=== PATIENT | female | born 1950 | race Caucasian/White ===

== ENCOUNTER → 2017-01-06 | Outpatient (CLI) | payer MEDICARE, BC, OTHER ==
[~2017-01-06] MED LIST: ASPI-535 PO; GLUC1CAP40 PO; OLME40TA14 PO; SIMV40TA3 PO
--- NOTE | 2017-01-06 14:22 | PN ---
Date/Time of Note Date/Time of Note DATE: 01/06/17 TIME: 14:16 Outpatient Progress Note Chief Complaint New complaint right knee HPI 66-year-old female presents today for new complaint of right knee pain that is been going on for the past couple of months. Patient states that she has a limping gait after being on the knee throughout the day. Pain is constant at a 7/10 on the pain scale.Denies any injury as pain is insidious in onset. 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 Takes anti-inflammatories as needed for pain complaints. Her history is significant for bilateral total hip arthroplasty with the right hip performed in 2007 and the left hip performed in 1999. Patient is very pleased in regards to bilateral hip replacements in the past but is due for revision surgery/ replacement liner. Patient is currently undergoing scheduling for revision/ replacement liner of the left hip.Other than that, denies any complications to previous surgeries.Patient's primary complaint is the right knee at this time. Denies any change in her function but notes that it is becoming increasingly difficult to perform daily activity secondary to constant right knee pain. Review of Systems Const: No Fever, no chills, no Fatigue, normal appetite, no diaphoresis. Resp: No SOB, no wheezing, no chest pain. CV: No chest pain, no palpitaions, no CLARK. Physical Exam Blood pressure is 138/73, temperature is 98.4, pulse is 91, respiratory rate is 14, height is 5 foot 3 inches, weight is 200 pounds General Appearance: well-developed, well-nourished, in no acute distress. Right knee: Obese in stature. Gait is antalgic with slight limp. While lying down patient has full range of motion in regards to flexion and extension of the right knee. Positive crepitus palpated to the medial and patellofemoral compartment. Tenderness to palpation to the medial compartment. Normal strength with resistance on flexion and extension. Normal sensory examination to light touch. Negative Jozef's test. Imaging X-ray to the right knee performed on 01/06/2017 showing severe osteoarthritic changes to the medial and patellofemoral compartment. [id number]-av-[id number] deformity to the medial compartment. There is about mild to moderate joint space narrowing to the lateral compartment. No signs of any acute injury/fracture. Allergies Coded Allergies: No Known Allergy (Unverified , 06/27/11) Assessment/Plan Problems: (1) Osteoarthritis of right knee * Patient is provided verbal and written consent to proceed with cortisone injection to the right knee. Area was cleaned with Betadine swab. 2 cc of Kenalog 40 mg per male with 6 cc of Marcaine 0.25% were injected to the knee using a 25-gauge needle.Band-Aid applied after injection. Patient was observed for 3-5 minutes after injection before discharge. * Continue anti-inflammatories as needed for pain complaints. Continue daily activity in regards to range of motion. Avoid strenuous activities such as jogging as this may create repetitive trauma to the knee. Avoid weightbearing for extended periods of time as this may exacerbate pain. * Discussion into possible total knee arthroplasty had today as patient is an eligible candidate but patient states that she will be taking a trip to [place] for 1 month and does not wish to discuss surgery at this time. She would also like to have replacement liner to the left hip placed prior to knee replacement. We will respect patient's wishes at this time. * Patient will follow-up when she returns from vacation. Medications Home Meds Reported Medications Glucosa Jay 2KCL/Chondroitin Jay (Glucosamine & Chondroitin Cap) 1 Cap Capsule, 2 CAP PO DAILY 06/27/11 Aspirin Ec (Aspir 81) 81 Mg Tablet.dr, 81 MG PO DAILY 06/27/11 Simvastatin (Simvastatin) 40 Mg Tablet, 40 MG PO DAILY 06/27/11 Olmesartan Medoxomil (Benicar) 40 Mg Tablet, 40 MG PO DAILY 06/27/11 JOSEFINA VARNER PA-C Jan 06, 2017 14:22
--- NOTE | 2017-01-06 17:53 | RADRPT ---
PROCEDURE: Right knee radiographs. CLINICAL INDICATION: Right knee pain. TECHNIQUE: Three views. Weight bearing. Frontal, lateral, and patellar view. COMPARISON: No prior studies are available for comparison. FINDINGS: There is no fracture or dislocation. The soft tissues are normal. There are degenerative changes with osteophytes arising from all 3 joint compartment margins. There is medial joint compartment narrowing and deformity. There is also patellofemoral joint compartment narrowing and deformity. There is no lytic or blastic lesion. There is no radiopaque foreign body. IMPRESSION: 1. Severe degenerative changes of the right knee. 2. No acute abnormality. RPTAT: QQ .Akbar Culp MD, MD Date Time Electronically viewed and signed by .Akbar Culp MD, MD on 01/06/2017 17:53 .R/
== END | disposition home or self-care (01) ==
LOC: HKI 13:22
DX: M17.11 Unilateral primary osteoarthritis, right knee (principal); Z79.82 Long term (current) use of aspirin

== ENCOUNTER → 2017-02-18 | Outpatient (CLI) | payer MEDICARE, BC ==
--- NOTE | 2017-02-18 17:22 | RADRPT ---
PROCEDURE: XR Left hip and pelvis. CLINICAL INDICATION: Left hip pain and pelvic pain. TECHNIQUE: 3 views. Frontal pelvis. Frontal and lateral left hip. COMPARISON: 06/18/2015. FINDINGS: There are bilateral total hip arthroplasties which appears satisfactory. There is no fracture, dislocation, or loosening. There is no lytic or blastic lesion. The upper pelvis is not included on the images. The soft tissues are grossly normal. IMPRESSION: 1. Satisfactory postoperative appearance of both hips. RPTAT: QQ .Akbar Culp MD, MD Date Time Electronically viewed and signed by .Akbar Culp MD, on 02/18/2017 17:21 .R/
--- NOTE | 2017-02-19 07:01 | HKNOTE ---
DATE OF SERVICE: 02/18/2017 CHIEF COMPLAINT: Left hip and right knee pain. HISTORY OF PRESENT ILLNESS: Sera is a 66-year-old female who is here for followup of her left hip a nd right knee pain. 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 She had a right hip replacement in 2007 and a left total hip replacement in 1999. The patient continues to have left groin pain and latera l hip pain that increases with weightbearing activities. She also complains of significant right kn ee pain with activity and has been diagnosed with osteoarthritis in the past. Today, she is mainly here to schedule surgery on her left hip. PAST MEDICAL HISTORY: Significant for hypertension, increased cholesterol, and arthritis. MEDICATIONS: 1. Benicar. 2. Simvastatin. 3. Aspirin. 4. Glucosamine. ALLERGIES: NONE. REVIEW OF SYSTEMS: Positive for joint pains and stiffness. Negative for chest pain, shortness of b reath, nausea, vomiting, diarrhea. PHYSICAL EXAMINATION: GENERAL: Shows a pleasant female. She is somewhat anxious, awake, alert, and oriented. She is wal adelso with a slight limp on her left side. VITAL SIGNS: Stable. Height is 5 foot 3 inches, weight 195, pulse rate is 88, respirations 16. EXTREMITIES: Examination of the right hip shows a healed incision with good range of motion. [place] of the left hip shows a healed incision with lateral tenderness over the greater trochanter. Range of motion shows flexion of 100 degrees, external rotation of 40 degrees, and internal rotatio n of 0 degrees. The left lower extremity is 5 mm shorter than the right. There is no neurovascular deficit. Examination of the right knee shows a mild varus deformity with medial joint line tendern ess and mild swelling. Range of motion of the right knee shows crepitus on range of motion and limi tation from 5 to 120 degrees. There is no neurovascular deficit. IMAGING: X-rays of the right knee from 01/06/2017 show severe osteoarthritis with complete loss of medial joint space. 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 She would like to proceed with hip revision on her left side. She will most likely need a head and liner exchange and a possible revision of the cup. This was discussed in detail with the patient. She will be sc heduled for surgery in the near future. For her right knee osteoarthritis, we will start a series o f Orthovisc injections today. She is interested in a right total knee replacement at some point in the future. I have advised her to wait several months after her left hip surgery is completed. Dictated By: LUZMARIA MULLER/CHRISTOPHER Conf#: [id number] DID#: [id number]
--- NOTE | 2017-02-25 14:30 | PN ---
Date/Time of Note Date/Time of Note DATE: 02/25/17 TIME: 14:27 Outpatient Progress Note Chief Complaint Orthovisc right knee injection #2 HPI 66-year-old female presents today for second Orthovisc injection to the right knee. Since experiencing her first injection last week, she denies any significant relief. No acute injuries. No changes since she was last seen. Review of Systems Const: No Fever, no chills, no Fatigue, normal appetite, no diaphoresis. Resp: No SOB, no wheezing, no chest pain. CV: No chest pain, no palpitaions, no CLARK. Physical Exam General Appearance: well-developed, well-nourished, in no acute distress. Right knee: No significant changes from examination last week. Allergies Coded Allergies: No Known Allergy (Unverified , 06/27/11) Assessment/Plan Problems: (1) Osteoarthritis of right knee * Second Orthovisc injection performed today to the right knee. Area was cleaned with Betadine swabs and alcohol. Using 22-1/2-gauge needle, second Orthovisc injection was performed after local anesthesia was achieved with 1% lidocaine. Patient tolerated procedure well. Follow-up 1 week for last injection of the series. Medications Home Meds Reported Medications Glucosa Jay 2KCL/Chondroitin Jay (Glucosamine & Chondroitin Cap) 1 Cap Capsule, 2 CAP PO DAILY 06/27/11 Aspirin Ec (Aspir 81) 81 Mg Tablet.dr, 81 MG PO DAILY 06/27/11 Simvastatin (Simvastatin) 40 Mg Tablet, 40 MG PO DAILY 06/27/11 Olmesartan Medoxomil (Benicar) 40 Mg Tablet, 40 MG PO DAILY 06/27/11 JOSEFINA VARNER PA-C Feb 25, 2017 14:30
== END | disposition home or self-care (01) ==
LOC: HKI 14:25
PROVIDERS: ATTEND Orthopaedic Surgery
DX: M17.11 Unilateral primary osteoarthritis, right knee (principal); Z79.82 Long term (current) use of aspirin
CPT/HCPCS: 20610; 73502; G0463; J7324

== ENCOUNTER → 2017-02-25 | Outpatient (CLI) | payer MEDICARE, BC | END | disposition home or self-care (01) | LOC: HKI 13:57 | PROVIDERS: ATTEND Orthopaedic Surgery | DX: M17.11 Unilateral primary osteoarthritis, right knee (principal) ==

== ENCOUNTER → 2017-03-04 | Outpatient (CLI) | payer MEDICARE, BC ==
--- NOTE | 2017-03-04 10:38 | PN ---
Date/Time of Note Date/Time of Note DATE: 03/04/17 TIME: 10:35 Outpatient Progress Note Chief Complaint Right knee Orthovisc injection 06/25 HPI 66-year-old female presents today for third Orthovisc injection. Patient is beginning to experience some relief to the right knee after her second Orthovisc injection. No acute changes since she was last seen. No recent injury. Review of Systems Const: No Fever, no chills, no Fatigue, normal appetite, no diaphoresis. Resp: No SOB, no wheezing, no chest pain. CV: No chest pain, no palpitaions, no CLARK. Physical Exam Blood pressure is 127/81, temperature is 98, pulse is 77, respiratory rate is 12, height is 5 foot 3 inches, weight is 195 pounds General Appearance: well-developed, well-nourished, in no acute distress. Right knee: No changes in physical examination since patient was last seen. Patient is able to flex up to 120 and fully extend. No pain complaints with range of motion today. No tenderness to palpation. Mild ecchymosis at injection site from last week. Allergies Coded Allergies: No Known Allergy (Unverified , 06/27/11) Assessment/Plan Problems: (1) Osteoarthritis of right knee * Third Orthovisc injection performed today. Area was cleaned with Betadine swab followed by isopropyl alcohol swab. Using 25-gauge needle local anesthesia was performed with 1% lidocaine about 4 cc. After local anesthesia was achieved, Orthovisc injection was performed with no complications. Patient was observed for 5-10 minutes after procedure and then discharged. * Follow-up as needed in regards to the right knee. Patient has upcoming liner exchange surgery for her hip. We will continue with preoperative process. Medications Home Meds Reported Medications Glucosa Jay 2KCL/Chondroitin Jay (Glucosamine & Chondroitin Cap) 1 Cap Capsule, 2 CAP PO DAILY 06/27/11 Aspirin Ec (Aspir 81) 81 Mg Tablet.dr, 81 MG PO DAILY 06/27/11 Simvastatin (Simvastatin) 40 Mg Tablet, 40 MG PO DAILY 06/27/11 Olmesartan Medoxomil (Benicar) 40 Mg Tablet, 40 MG PO DAILY 06/27/11 JOSEFINA VARNER PA-C Mar 04, 2017 10:38
== END | disposition home or self-care (01) ==
LOC: HKI 10:13
PROVIDERS: ATTEND Orthopaedic Surgery
DX: M17.11 Unilateral primary osteoarthritis, right knee (principal); Z79.82 Long term (current) use of aspirin
CPT/HCPCS: 20610; J7324

== ENCOUNTER → 2017-04-08 | Outpatient (CLI) | END | disposition home or self-care (01) ==

== ENCOUNTER 2017-04-12 09:33 | Inpatient (IN) | payer MEDICARE, BC ==
[~2017-04-12] VITALS: Ht 160 cm; Wt 91.9 kg
[2017-04-12] VITALS (30 sets, daily range): BP systolic 105–130; BP diastolic 51–69; PULSE 62–86; RESP 12–23; Ht 160 cm; Wt 91.9 kg
[2017-04-12] MEDS: LACTATED RINGER'S 1,000 ML IV SCH ×3 (06:00→22:00)
[~2017-04-12 09:33] MED LIST changes: +ACETAMINOPHEN 1000MG/100ML IV 100 ML IVPB ONE; +CEFAZOLIN 2 GM/50 ML (PMX) 50 ML (FOR WT < 120 KG) IVPB ONE; +CELECOXIB 200 MG CAP PO ONE; +DEXAMETHASONE 4 MG/ML 1 ML INJ IV ONE; +ETOMIDATE 20 MG INJ ONE; +LANSOPRAZOLE 30 MG CAP PO ONE; +ONDANSETRON 4 MG INJ IV ONE; +PROPOFOL 1000 MG INJ ONE; +TRANEXAMIC ACID 1,000 MG in D5W 100 ML AT CLOSURE X1 IVPB ONE; +TRANEXAMIC ACID 1,000 MG in D5W 100 ML AT INCISION X1 IVPB ONE
[2017-04-12] MEDS ORDERED: SODIUM CL BACTERIOSTATIC 30 ML INJ ONE (10:11)
[2017-04-12] MEDS ORDERED: DEXAMETHASONE 4 MG/ML 1 ML INJ ONE (10:17)
[2017-04-12] MEDS ORDERED: CEFAZOLIN 1 GM INJ ONE (10:17)
[2017-04-12] MEDS ORDERED: MIDAZOLAM 1 MG/ML 2 ML INJ ONE (10:17)
[2017-04-12] MEDS ORDERED: GLYCOPYRROLATE 0.4 MG INJ ONE (10:17)
[2017-04-12] MEDS ORDERED: FENTAnyl 50 MCG/ML VIAL ONE (10:17)
[2017-04-12] MEDS ORDERED: NEOSTIGMINE 3 MG/3 ML SYRINGE ONE (10:17)
[2017-04-12] MEDS ORDERED: ONDANSETRON 4 MG INJ ONE (10:17)
[2017-04-12] MEDS ORDERED: ROCURONIUM 50 MG INJ ONE (10:17)
[2017-04-12] MEDS ORDERED: PROPOFOL 20 ML ONE (10:17)
--- NOTE | 2017-04-12 10:36 | HPN ---
Date/Time of Note Date/Time of Note DATE: 04/12/17 TIME: 10:36 Interval H&P Admission Note Pt. seen H&P reviewed: No system changes LUZMARIA BLANCO Apr 12, 2017 10:36
[2017-04-12] MEDS ORDERED: EPHEDrine SULFATE 50 MG/5 ML SYG IV PRN (11:30)
[2017-04-12] MEDS ORDERED: DIPHENHYDRAMINE 50 MG INJ IV PRN (11:30)
[2017-04-12] MEDS ORDERED: HYDROmorphONE (0.2 MG/ML) 10ML SYG IV PRN ×6 (11:30→15:00)
[2017-04-12] MEDS ORDERED: MEPERIDINE 25 MG INJ IV PRN (11:30)
[2017-04-12] MEDS ORDERED: TRIMETHOBENZAMIDE 100 MG/ML VIAL IM PRN (11:30)
[2017-04-12] MEDS ORDERED: LABETALOL HCL 20MG INJ IV PRN (11:30)
[2017-04-12] MEDS ORDERED: ALBUTEROL 0.083% (NEB) 2.5 MG/3 ML AMP HHN PRN (11:30)
[2017-04-12] MEDS ORDERED: FENTAnyl 50 MCG/ML VIAL IV PRN ×6 (11:30→15:00)
[2017-04-12] MEDS ORDERED: IPRATROPIUM (NEB) 0.5 MG/2.5 ML AMP HHN PRN (11:30)
[2017-04-12] MEDS ORDERED: ONDANSETRON 4 MG INJ IV PRN ×2 (11:30→15:00)
[2017-04-12] MEDS ORDERED: MIDAZOLAM 1 MG/ML 2 ML INJ IV PRN (11:30)
[2017-04-12] MEDS ORDERED: hydrALAzine 20 MG INJ IV PRN (11:30)
[2017-04-12] MEDS ORDERED: OXYCODONE/ACETAMINOPHEN (5/325) TAB PO PRN ×3 (11:30→15:00)
[2017-04-12] MEDS ORDERED: BACITRACIN 50000 UNITS INJ IRR ONE (11:37)
[2017-04-12] MEDS ORDERED: POLYMYXIN B 500000 UNIT INJ IRR ONE (11:37)
[2017-04-12] MEDS ORDERED: SUGAMMADEX SODIUM 200 MG/2 ML VIAL IV ONE (12:13)
--- NOTE | 2017-04-12 12:23 | SIPON ---
Date/Time of Note Date/Time of Note DATE: 04/12/17 TIME: 12:21 Operative Report Preoperative Diagnosis Failed left total hip replacement Postoperative Diagnosis Same Operation/Procedure Performed Revision of left total hip replacement Surgeon see signature line kindergarten instructional assistant Michael Brush Second assist: JOSEFINA VARNER PA-C Anesthesia: spinal Estimated blood loss: 150 - 200 ml's Transfusion Required none Specimen Cultures Grafts/Implants 48 mm +4 polyethylene, 28 mm revision ceramic head Complications none LUZMARIA BLANCO Apr 12, 2017 12:23
--- NOTE | 2017-04-12 12:27 | OPR ---
Date/Time of Note Date/Time of Note DATE: 04/12/17 TIME: 12:23 Operative Report Procedure Date: Apr 12, 2017 Preoperative Diagnosis Failed left total hip replacement Postoperative Diagnosis Same Operation/Procedure Performed ReVision of left total hip replacement Surgeon see signature line Casting Finisher Dr. Michael Brush Second Casting Finisher: JOSEFINA VARNER PA-C Anesthesia Type: spinal Estimated Blood Loss: 150 - 200 ml's Transfusion none Specimen Cultures Grafts/Implants 48 mm +4 [place] liner, 28 mm revision ceramic head Tubes/Drains None Complications none Pt Condition Post Procedure: stable Disposition: PACU Indications The patient had a left total hip replacement about 17 years ago. She has now developed pain and difficulty with walking. X-rays show wear and osteolysis of the left hip Procedure Description The patient was placed supine on the operating room table. The left hip was prepped and draped in usual manner. Preoperative antibiotics were administered. The left hip was approached anteriorly. The plane between the sartorius and tensor fascia marianne was developed in a blunt fashion. The hip capsule was opened. Effusion was encountered. Cultures were obtained. The capsular release was done around the proximal femur and acetabulum to expose the acetabular component. Significant wear and also lysis was encountered. The femoral head and acetabular liner were removed. The hip was thoroughly irrigated. The locking ring on the acetabulum was removed as well. Trial components were then placed including a 48 mm +4 liner and a 28 mm +8.5 femoral head. This resulted in a stable hip with equal leg length. X-rays were obtained to confirm alignment. Once satisfactory alignment was confirmed, final components were placed including a 48 mm +4 [place] liner and a 28 mm revision ceramic head with a +8.5 mm length. This resulted in a stable hip and equal leg length. Left hip was then thoroughly irrigated and injected with Marcaine and Toradol. The wound was closed in layers using #1 Vicryl for arthrotomy and fascia 2-0 Vicryl for subcutaneous tissue and 3-0 Monocryl for the skin. Patient was transferred to the recovery room in stable condition LUZMARIA BLANCO Apr 12, 2017 12:27
--- NOTE | 2017-04-12 12:39 | PDOCDIS ---
Discharge Instructions DIAGNOSIS Discharge Diagnosis Left total hip revision with head and liner exchange. CONDITION Patient Condition: Good HOME CARE INSTRUCTIONS: Diet Instructions: Regular ACTIVITY: Activity Restrictions: Slowly Increase Activity Rest between Activity Avoid heavy lifting No Sexual Activity Do not Drive Do not operate Machinery Do not operate Power Tool Avoid Heavy Housework Keep Limb Elevated (May apply cold therapy over surgical dressing. No ice directly to skin.) Weight Bearing (Weight-bear as tolerated with front wheeled walker) Bathing Restrictions: Shower (Mepilex dressing to remain on until postoperative appointment.) FOLLOW UP/APPOINTMENTS Follow-up Plan Follow-up at postoperative appointment provided to you at your preoperative visit. JOSEFINA VARNER PA-C Apr 12, 2017 12:39
[2017-04-12] MEDS ORDERED: MAGNESIUM HYDROXIDE 30ML CUP PO PRN (13:00)
[2017-04-12] MEDS ORDERED: NA PHOSPHATE/BIPHOS 133 ML ENEMA PR PRN (13:00)
[2017-04-12] MEDS ORDERED: DIPHENHYDRAMINE 50 MG INJ IM PRN (13:00)
[2017-04-12] MEDS ORDERED: DOCUSATE SODIUM 100 MG CAP PO ONE (13:00)
[2017-04-12] MEDS ORDERED: KETOROLAC 15 MG INJ IV PRN (13:00)
[2017-04-12] MEDS ORDERED: SENNA/DOCUSATE NA (8.6MG/50MG) TAB PO PRN (13:00)
[2017-04-12] MEDS ORDERED: BISACODYL 10 MG SUPP PR PRN (13:00)
[2017-04-12] MEDS ORDERED: NALOXONE (0.4 MG/ML) INJ IV PRN (13:00)
[2017-04-12] MEDS ORDERED: oxyCODONE 5 MG TAB PO PRN ×3 (13:00)
[2017-04-12] MEDS ORDERED: ASPIRIN (EC) 325 MG TAB PO ONE (13:00)
[2017-04-12] MEDS ORDERED: BETHANECHOL 25 MG TAB PO PRN (13:00)
[2017-04-12] MEDS ORDERED: NACL 0.9% 3 ML SYG IV SCH (13:00)
[2017-04-12] MEDS ORDERED: ZOLPIDEM 5 MG TAB PO PRN (13:00)
[2017-04-12] MEDS: CEFAZOLIN 1 GM/50 ML (PMX) 50 ML IVPB SCH ×2 (13:54→22:19)
[2017-04-12] MEDS: ONDANSETRON 4 MG INJ IV SCH ×2 (13:55→19:00)
[2017-04-12] MEDS ORDERED: BACITRACIN 50000 UNITS INJ ONE (14:06)
[2017-04-12] MEDS ORDERED: POLYMYXIN B 500000 UNIT INJ ONE (14:10)
--- NOTE | 2017-04-12 14:18 | RADRPT ---
PROCEDURE: Pelvis x-ray CLINICAL INDICATION: Left hip replacement, pain TECHNIQUE: Single AP view of the pelvis performed. COMPARISON: 02/18/2017 FINDINGS: Normal mineralization, architecture and alignment. Bilateral hip arthroplasties are again seen. These are not significantly changed compared to the pre vious study. Unremarkable soft tissues. IMPRESSION: Stable bilateral total hip arthroplasty. RPTAT:AAJJ Physician Ria Date Time Electronically viewed and signed by Wayne Mccain Physician on 04/12/2017 14:17 /
--- NOTE | 2017-04-12 14:50 | CONS ---
DATE OF ADMISSION: 04/12/2017 DATE OF CONSULTATION: 04/12/2017 TYPE OF CONSULTATION: Postoperative medical. Thank you very much, Dr. Bradley, for allowing me to evaluate this 66-year-old female who just underw ent left hip revision. HISTORICAL EVENTS: As you well know, this patient did undergo prior bilateral total hip replacement . Because of continued pain, she elected to proceed with revisional surgery of her left hip. In re covery, she is comfortable without cough, wheezing, shortness of breath, nausea, vomiting, abdominal or chest pain. PAST MEDICAL HISTORY: Includes 1. Hypertension. 2. Hyperlipidemia. 3. Asymptomatic cholelithiasis. 4. Diverticulosis. 5. Bilateral total hip replacements. FAMILY HISTORY: Positive for CLL, Paget's disease and hyperlipidemia. SOCIAL HISTORY: She is a nonsmoker. 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 MEDICATIONS: 1. Aspirin 81 mg per day. 2. Benicar 40 mg. 3. Simvastatin 40. Tygacil 50 mg 1 spray in each nostril daily. ALLERGIES: NONE. PHYSICAL EXAMINATION: GENERAL: [place] female in no acute distress. VITAL SIGNS: BP 122/80, pulse 70, respirations 20, she was afebrile. EYES: Extraocular muscles were full. NOSE, MOUTH, AND THROAT: Normal. NECK: Supple. There was no jugular venous distention, thyroid enlargement or adenopathy. LUNGS: Clear. HEART: Rhythm regular, no murmur. No third or fourth sound. ABDOMEN: Nontender. Liver and spleen were not palpable. No masses or tenderness were noted. EXTREMITIES: No edema, no calf tenderness bilaterally. NEUROLOGIC: No lateralizing motor weakness. IMPRESSION: 1. Stable postoperative left hip replacement. 2. Hyperlipidemia. We will continue statin. 3. Hypertension antihypertensive therapy will be continued and blood pressure monitored. 4. We will evaluate daily for signs and symptoms of thromboembolic disease. Dictated By: MARYAM NEVILLE/CHRISTOPHER Conf#: [id number] DID#: [id number]
[2017-04-12] MEDS: LOSARTAN 50 MG TAB PO SCH (17:00)
[2017-04-12] MEDS: SOD CHLORIDE 0.9% 1,000 ML IV SCH (17:50)
[2017-04-12] MEDS ORDERED: ATORVASTATIN 20 MG TAB PO SCH (21:00)
[2017-04-13] MEDS: ONDANSETRON 4 MG INJ IV SCH ×2 (01:00→06:23)
[2017-04-13] MEDS: SOD CHLORIDE 0.9% 1,000 ML IV SCH ×2 (01:10→07:15)
[2017-04-13 01:52] VITALS: BP 115/56; RESP 18
[2017-04-13] MEDS: CEFAZOLIN 1 GM/50 ML (PMX) 50 ML IVPB SCH (05:02)
[2017-04-13 05:24] LABS: BASOPHILS % 0.1 % (0.0-2.0); HEMATOCRIT 36.3 % (37.0-47.0); HEMOGLOBIN 12.2 g/dl (12.0-16.0); LYMPHOCYTES # 0.8 10^3/ul (0.8-2.9); LYMPHOCYTES % 6.5 % (15.0-51.0); MEAN CORPUSCULAR HEMOGLOBIN 29.5 pg (29.0-33.0); MEAN CORPUSCULAR HGB CONC 33.6 g/dl (32.0-37.0); MEAN CORPUSCULAR VOLUME 87.7 fl (82.0-101.0); MEAN PLATELET VOLUME 11.5 fl (7.4-10.4); MONOCYTE # 0.6 10^3/ul (0.3-0.9); MONOCYTES % 4.3 % (0.0-11.0); NEUTROPHIL # 11.4 10^3/ul (1.6-7.5); NEUTROPHILS % 88.7 % (39.0-77.0); PLATELET COUNT 231 10^3/UL (140-415); RED BLOOD COUNT 4.14 10^6/ul (4.20-5.40); RED CELL DISTRIBUTION WIDTH 14.7 % (11.5-14.5); WHITE BLOOD COUNT 12.9 10^3/ul (4.8-10.8)
[2017-04-13 05:50] LABS: CALCIUM 9.3 mg/dl (8.4-10.2); CREATININE 0.96 mg/dl (0.44-1.00); POTASSIUM 4.6 mmol/L (3.5-5.1)
[2017-04-13] MEDS: LACTATED RINGER'S 1,000 ML IV SCH ×2 (06:00→14:00)
[2017-04-13] MEDS ORDERED: PANTOPRAZOLE (EC) 40 MG TAB PO SCH (06:00)
[2017-04-13 07:35] VITALS: BP 117/67; RESP 18
--- NOTE | 2017-04-13 08:28 | CONS ---
Date/Time of Note Date/Time of Note DATE: 04/13/17 TIME: 08:27 Assessment/Plan Assessment/Plan Additional Assessment/Plan 1. Stable postoperative left hip replacement. 2. Hyperlipidemia, statin was continued 3. Hypertension, well controlled 4. Can dc if ok with ortho and pt Consultation Date/Type/Reason Admit Date/Time Apr 12, 2017 at 09:33 Initial Consult Date Detailed Summary Respiratory: No shortness of breath Cardiovascular: No chest pain Gastrointestinal: No no complaints Genitourinary: No no complaints Musculoskeletal: bone/joint pain (mild left hip pain) Exam/Review of Systems Vital Signs Vitals Vital Signs Date Time Temp Pulse Resp B/P Pulse Ox O2 Delivery O2 Flow Rate FiO2 04/13/17 07:35 98.0 68 18 117/67 95 04/12/17 14:32 Room Air 04/12/17 13:17 2.0 Intake and Output 04/12/17 04/12/17 04/13/17 15:00 23:00 07:00 Intake Total 220 ml 1280 ml Output Total 200 ml Balance 20 ml 1280 ml Exam Neck: No jvd Respiratory: clear to auscultation, crackles/rales Cardiovascular: regular rate and rhythm Gastrointestinal: soft Extremities: No edema (and no calf tend bilat) Results Result Diagram: 04/13/17 0459 04/13/17 0459 Results 24 hrs Laboratory Tests Test 04/13/17 04:59 White Blood Count 12.9 H Red Blood Count 4.14 L Hemoglobin 12.2 Hematocrit 36.3 L Mean Corpuscular Volume 87.7 Mean Corpuscular Hemoglobin 29.5 Mean Corpuscular Hemoglobin Concent 33.6 Red Cell Distribution Width 14.7 H Platelet Count 231 Mean Platelet Volume 11.5 H Neutrophils % 88.7 H Lymphocytes % 6.5 L Monocytes % 4.3 Eosinophils % 0.0 Basophils % 0.1 Nucleated Red Blood Cells % 0.0 Neutrophils # 11.4 H Lymphocytes # 0.8 Monocytes # 0.6 Eosinophils # 0.0 Basophils # 0.0 Nucleated Red Blood Cells # 0.0 Sodium Level 140 Potassium Level 4.6 Chloride Level 107 Carbon Dioxide Level 24 Anion Gap 14 Blood Urea Nitrogen 17 Creatinine 0.96 Glucose Level 116 Calcium Level 9.3 Medications Medications Current Medications Lactated Ringer's 1,000 ml @ 125 mls/hr Q8H IV ; Start 04/12/17 at 06:00 Sodium Chloride (NS) 1,000 ml @ 80 mls/hr [id number] IV Last administered on t 07:15; Admin Dose 80 MLS/HR; Start 04/12/17 at 12:40 Oxycodone HCl (Roxicodone) 20 mg Q3H PRN PO PAIN LEVEL 8-10; Start 04/12/17 at 13:00 Oxycodone HCl (Roxicodone) 10 mg Q3H PRN PO PAIN LEVEL 4-7; Start 04/12/17 at 13:00 Oxycodone HCl (Roxicodone) 5 mg Q3H PRN PO PAIN LEVEL 1-3; Start 04/12/17 at 13:00 Zolpidem Tartrate (Ambien) 5 mg HS PRN PO INSOMNIA; Start 04/12/17 at 13:00 Celecoxib (Celebrex) 100 mg BID PO ; Start 04/13/17 at 09:00 Pantoprazole (Protonix Tab) 40 mg DAILY@06 PO Last administered on 04/13/17 05:02; Admin Dose 40 MG; Start 04/13/17 at 06:00 Docusate Sodium/ Ferrous Fumarate (Naga-Sequels) 1 tab BID PO ; Start at 09:00 Docusate Sodium (Colace) 200 mg BID PO ; Start 04/13/17 at 09:00; Stop at 21:01 Simethicone (Mylicon) 80 mg TID PRN PO DISTENSION/GAS/BLOATING; Start at 13:00 Senna/Docusate Sodium (Senokot-S) 2 tab BID PRN PO CONSTIPATION; Start at 13:00 Magnesium Hydroxide (Milk Of Mag) 30 ml HS PRN PO CONSTIPATION; Start at 13:00 Bisacodyl (Dulcolax Supp) 10 mg DAILY PRN NM CONSTIPATION; Start 04/12/17 at 13:00 Sodium Biphosphate/ Sodium Phosphate (Fleet Enema) 133 ml DAILY PRN NM CONSTIPATION; Start 04/12/17 at 13:00 Diphenhydramine HCl (Benadryl) 25 mg Q4H PRN IM ITCHING OR RASH; Start 12/19/ 17 at 13:00 Ketorolac Tromethamine (Toradol) 15 mg PRN PRN IV PAIN; Start 04/12/17 at 13: 00; Stop 04/16/17 at 12:59 Naloxone HCl (Narcan) 0.2 mg Q2M PRN IV DECREASED REPIRATORY RATE; Start at 13:00 Aspirin (Ecotrin) 325 mg DAILY PO ; Start 04/13/17 at 09:00 Losartan Potassium (Cozaar) 100 mg DAILY PO ; Start 04/12/17 at 17:00 Atorvastatin Calcium (Lipitor) 20 mg DAILY@21 PO Last administered on t 22:19; Admin Dose 20 MG; Start 04/12/17 at 21:00 MARYAM PINEDA MD Apr 13, 2017 08:28
[2017-04-13] MEDS: LOSARTAN 50 MG TAB PO SCH (08:55)
[2017-04-13] MEDS ORDERED: DOCUSATE SODIUM 100 MG CAP PO SCH (09:00)
[2017-04-13] MEDS ORDERED: ASPIRIN (EC) 325 MG TAB PO SCH (09:00)
[2017-04-13] MEDS ORDERED: FERROUS FUMARATE (SR) TAB PO SCH (09:00)
[2017-04-13] MEDS ORDERED: CELECOXIB 200 MG CAP PO SCH (09:00)
--- NOTE | 2017-04-13 12:13 | PN ---
Date/Time of Note Date/Time of Note DATE: 04/13/17 TIME: 12:11 Assessment/Plan VTE Prophylaxis VTE Prophylaxis Intervention: ambulation, SCD's, other (Aspirin 325 mg) Lines/Catheters IV Catheter Type (from Nrsg): Peripheral IV Rousseau in Place (from Nrsg): No Assessment/Plan Assessment/Plan -Pain Meds as needed -ASA for DVT Prophylaxis x 4 weeks outpatient discussed. -Continue monitoring as outpatient on discharge -Follow-up at scheduled postop outpatient appointment or sooner if there is any issue. -Hip precautions discussed -Patient Stable -Discharge to Home with home health Subjective 24 Hr Interval Summary 66-year-old female postop day 1 status post left total hip revision. No complaints overnight. Denies any pain complaints throughout the day. Has been up and walking with physical therapy. Patient would like to go home today. Denies any chest pain/tightness, shortness of breath or calf pain. Constitutional: no complaints Pain Control: well controlled Exam/Review of Systems Vital Signs Vitals Vital Signs Date Time Temp Pulse Resp B/P Pulse Ox O2 Delivery O2 Flow Rate FiO2 04/13/17 07:35 98.0 68 18 117/67 95 04/12/17 14:32 Room Air 04/12/17 13:17 2.0 Intake and Output 04/12/17 04/12/17 04/13/17 15:00 23:00 07:00 Intake Total 220 ml 1280 ml Output Total 200 ml Balance 20 ml 1280 ml Exam Free Text/Dictation -No complications with dressing intact. -Thigh soft -5/5 Quadriceps, Tibialis Anterior, EHL Gastrocnemius/Soleus and Peroneals -Normal Sensation -Palpable DP/PT, Capillary Refill <2 secs -No Distal Edema -Negative Jacki Sign/No calf pain -Toes Freely Movable Constitutional: alert, oriented, well developed Results Result Diagram: 04/13/17 0459 04/13/17 0459 JOSEFINA VARNER PA-C Apr 13, 2017 12:13
--- NOTE | 2017-04-14 08:07 | DS ---
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 Patient Condition: Good Hospital Course On the day of admission, the patient underwent left total hip revision with head and liner exchange Intraoperative complications: None Postoperative complications: None The patient was given prophylactic antibiotics and anticoagulants. On the day of surgery and first postoperative day patient was started on gait training and was taught usual restrictions following anterior hip replacement On postoperative day 1 dressing was clean dry and intact. No complications were observed. On the day of discharge, the wound was clean and healing well; there was no sign of infection. Wound care instructions were discussed with the patient. Discharge Temperature: 90 Discharge White Blood Cell Count: 12.9 Discharge Hemoglobin: 12.2 The patient was discharged home with home health. Arrangements were made for visiting nurses and home health/physical therapy. The patient will be seen in office at scheduled postoperative evaluation date given on their preoperative exam. Should patient complain of any problems prior to scheduled postoperative evaluation date, they may call into outpatient clinic to determine if they need to be scheduled at sooner appointment to be seen immediately if needed. Discharge medications: As per medication reconciliation form Diet: Same as preadmission diet. This is Shay Iniguez PA-C dictating discharge summary for Dr. Bradley. Home Meds Reported Medications Aspirin Ec (Aspir 81) 81 Mg Tablet.dr, 81 MG PO DAILY 06/27/11 Simvastatin (Simvastatin) 40 Mg Tablet, 40 MG PO DAILY 06/27/11 Olmesartan Medoxomil (Benicar) 40 Mg Tablet, 40 MG PO DAILY 06/27/11 Discontinued Reported Medications Glucosa Jay 2KCL/Chondroitin Jay (Glucosamine & Chondroitin Cap) 1 Cap Capsule, 2 CAP PO DAILY 06/27/11 Follow-up Plan Follow-up at postoperative appointment provided to you at your preoperative visit. Primary Care Provider MD GARDENIA Ledezma KERBY PA-C Apr 14, 2017 08:07
== END 2017-04-13 14:45 | disposition home health service (06) | DRG 468 ==
LOC: REC 09:33 → MS1 18:10
PROVIDERS: ADMIT Orthopaedic Surgery; ATTEND Orthopaedic Surgery
PROC: 0SPB0JZ Removal of Synthetic Substitute from Left Hip Joint, Open Approach (ICD-10-PCS; 2017-04-12)
PROC: 0SRB04Z Replacement of Left Hip Joint with Ceramic on Polyethylene Synthetic Substitute, Open Approach (ICD-10-PCS; principal; 2017-04-12 12:30)
DX: T84.091A Other mechanical complication of internal left hip prosthesis, initial encounter (principal); Z96.641 Presence of right artificial hip joint; I10 Essential (primary) hypertension; Y79.8 Miscellaneous orthopedic devices associated with adverse incidents, not elsewhere classified; E78.5 Hyperlipidemia, unspecified
CPT/HCPCS: 73530; 80048; 85025; 86850; 86900; 86901; 87070; 87075; 88300; 97110; 97116; 97163; 97165; 97535; C1776; J0171; J0690; J0735; J1100; J1885; J2250; J2405; J2710; J2795; J3010; J7030; J7120

== ENCOUNTER → 2017-04-29 | Outpatient (CLI) | END | disposition home or self-care (01) ==

== ENCOUNTER → 2017-05-27 | Outpatient (CLI) | END | disposition home or self-care (01) ==

== ENCOUNTER → 2017-07-15 | Outpatient (CLI) | END | disposition home or self-care (01) ==

== ENCOUNTER → 2018-01-02 | Outpatient (CLI) | END | disposition home or self-care (01) ==

== ENCOUNTER → 2018-04-03 | Outpatient (CLI) | END | disposition home or self-care (01) ==

== ENCOUNTER 2018-04-06 12:25 | Day surgery (SDC) | END 2018-04-07 14:35 | disposition home or self-care (01) ==

== ENCOUNTER → 2018-04-21 | Outpatient (CLI) | END | disposition home or self-care (01) ==

== ENCOUNTER → 2018-05-15 | Outpatient (CLI) | payer MEDICARE, BC ==
[~2018-05-15] MED LIST changes: -ACETAMINOPHEN 1000MG/100ML IV 100 ML IVPB ONE; -ASPI-535 PO; -CEFAZOLIN 2 GM/50 ML (PMX) 50 ML (FOR WT < 120 KG) IVPB ONE; -CELECOXIB 200 MG CAP PO ONE; -DEXAMETHASONE 4 MG/ML 1 ML INJ IV ONE; -ETOMIDATE 20 MG INJ ONE; +FLUT16SP17 NASAL; -GLUC1CAP40 PO; -LANSOPRAZOLE 30 MG CAP PO ONE; +OLME40TA13 PO; -OLME40TA14 PO; -ONDANSETRON 4 MG INJ IV ONE; -PROPOFOL 1000 MG INJ ONE; -TRANEXAMIC ACID 1,000 MG in D5W 100 ML AT CLOSURE X1 IVPB ONE; -TRANEXAMIC ACID 1,000 MG in D5W 100 ML AT INCISION X1 IVPB ONE
--- NOTE | 2018-05-15 12:39 | PN ---
Date/Time of Note Date/Time of Note DATE: 05/15/18 TIME: 12:37 Assessment/Plan VTE Prophylaxis Pharmacological prophylaxis: NA/contraindicated Pharm contraindication: low risk/ambulating Assessment/Plan Assessment/Plan 67-year-old female who is progressing slowly after right knee replacement. The patient is advised to continue physical therapy especially for range of motion. She will do exercises on her own as well. Anti-inflammatory medications and gabapentin may be used as needed. The patient feels that she is having some side effects from the gabapentin and is advised to stop that. She will follow- up in 3 months Subjective 24 Hr Interval Summary Free Text/Dictation Sera is 6 weeks status post right total knee replacement. She is progressing well with physical therapy. She reports some persistent pain and stiffness. No history of fever or chills Exam/Review of Systems Vital Signs Vitals Patient is afebrile Exam Examination shows a pleasant female. Incision is well-healed. Mild swelling is noted. Range of motion is 5-95 degrees. There is no neurovascular deficit. Mild tenderness is noted around the patella. X-rays were done today and show a total knee replacement in good position with no evidence of loosening LUZMARIA BLANCO May 15, 2018 12:39
--- NOTE | 2018-05-15 20:03 | RADRPT ---
PROCEDURE: XR Knee. CLINICAL INDICATION: Pain TECHNIQUE: Two views of the right knee are available for review. COMPARISON: 04/21/2018 FINDINGS: Right knee prosthesis is identified in anatomic location. No acute fracture or dislocation is seen. Alignment is anatomic. There is no joint effusion. No other abnormality is identified. RPTAT: ZZ IMPRESSION: 1. Right knee replacement in anatomic location. 2. No acute fracture or dislocation is seen. .Marleny Aguilar MD, MD Date Time Electronically viewed and signed by .Marleny Aguilar MD, MD on 05/15/2018 20:02 .T/
== END | disposition home or self-care (01) ==
LOC: HKI 11:25
PROVIDERS: ATTEND Orthopaedic Surgery
DX: M25.561 Pain in right knee (principal); Z96.651 Presence of right artificial knee joint